=== PATIENT | female | born 1995 | race Caucasian/White ===

== ENCOUNTER 2016-12-05 10:20 | Emergency (ER) | payer OTHER | END 2016-12-05 13:18 | disposition home or self-care (01) | LOC: ER 10:20 | DX: R11.2 Nausea with vomiting, unspecified (principal); R42 Dizziness and giddiness; R19.7 Diarrhea, unspecified; F12.10 Cannabis abuse, uncomplicated; Z88.0 Allergy status to penicillin | CPT/HCPCS: 36415; 80307; 96361; 96374; 96375; J0780; J1200; J2550; J2765 ==